=== PATIENT | female | born 1970 | race Caucasian/White ===

== ENCOUNTER → 2017-09-11 | Outpatient (CLI) | payer BC ==
[~2017-09-11] MED LIST: DCS100C PO; HYDR-34 PO; IBP600T1 PO
--- NOTE | 2017-09-11 17:15 | Diagnostic Imaging Report ---
INDICATION: Screening. At this time there are no current complaints. EXAMINATION: Bilateral digital screening mammogram with CAD. The current study was also evaluated with a Computer Aided Detection (CAD) system. COMPARISON: This study was compared to the prior exams of 02/29/2016 and 03/11/2012. FINDINGS: The fibroglandular tissue in both breasts is dense. This does limit the sensitivity of this exam. Overall, there does not appear to have been any significant change when compared to the prior study. No primary or secondary sign of malignancy is noted. IMPRESSION: There is no radiographic evidence for malignancy. ACR CATEGORY: 1 NEGATIVE. Dictated by: Dictated on workstation # [id number]
== END ==
LOC: RAD 15:39
PROVIDERS: ATTEND Family Medicine
DX: Z12.31 Encounter for screening mammogram for malignant neoplasm of breast (principal)
CPT/HCPCS: 77067

== ENCOUNTER → 2018-12-16 | Outpatient (CLI) | payer BC ==
--- NOTE | 2018-12-16 18:57 | Diagnostic Imaging Report ---
INDICATION: Chronic low back pain. TIME OF EXAM: 3:15 p.m. EXAMINATION: Three views of the lumbar spine were obtained. FINDINGS: Curvature and alignment is normal apart from minimal retrolisthesis of L5 on S1. Vertebral body heights are maintained. Disc spaces are fairly well preserved. There may be some degenerative facet changes noted at the L5-S1 and L4-L5 levels. No fracture or subluxation is seen. IMPRESSION: Lower lumbar spondylosis. No acute bony abnormality is detected. Dictated by: Dictated on workstation # [id number]
--- NOTE | 2018-12-17 20:42 | Diagnostic Imaging Report ---
INDICATION: Routine screening. Comparison is made with prior mammograms from 09/11/2017 at 02/29/2016. 2-D and 3-D bilateral screening mammography was performed with a Computer Aided Detection (CAD) system. FINDINGS: Both breasts are heterogeneously dense, limiting the sensitivity of mammography. Benign calcifications in the left breast are again noted. Overall parenchymal pattern is stable. No mass or malignant-appearing microcalcifications are seen. The axillae are unremarkable. IMPRESSION: No mammographic features suspicious for malignancy are identified. ACR BI-RADS Category 2: Benign findings. Result letter will be mailed to the patient. Note: At least 10% of breast cancer is not imaged by mammography. Dictated on workstation # [id number]
== END ==
LOC: RAD 14:40
PROVIDERS: ATTEND Family Medicine
DX: Z12.31 Encounter for screening mammogram for malignant neoplasm of breast (principal); M47.816 Spondylosis without myelopathy or radiculopathy, lumbar region
CPT/HCPCS: 72100; 77067

== ENCOUNTER → 2019-09-23 | Outpatient (CLI) | payer BC ==
--- NOTE | 2019-09-23 16:04 | Diagnostic Imaging Report ---
INDICATION: Right shoulder pain. EXAMINATION: Three views of the right shoulder were obtained. FINDINGS: No fracture, dislocation or other acute abnormality. IMPRESSION: Negative right shoulder. Dictated by: Dictated on workstation # [id number]
== END ==
LOC: RAD 15:24
PROVIDERS: ATTEND Nurse Practitioner Family
DX: M25.511 Pain in right shoulder (principal)
CPT/HCPCS: 73030

== ENCOUNTER → 2019-10-06 | Outpatient (CLI) | payer BC ==
--- NOTE | 2019-10-06 15:47 | Diagnostic Imaging Report ---
PROCEDURE: MRI lumbar spine. TECHNIQUE: Multiplanar, multisequence MRI of the lumbar spine was performed without contrast. INDICATION: Chronic low back pain. COMPARISON: No prior studies are available for comparison. FINDINGS: Curvature and alignment of the lumbar spine is normal. Vertebral body heights are maintained. No acute compression fracture or geographic marrow lesion is seen. There is some mild degenerative disc disease with variable disc space narrowing and desiccation. The conus is unremarkable at the L1-L2 level. T12-L1: Central canal is widely patent. Neural foramina are patent. L1-L2: Central canal is widely patent. Neural foramina appear patent. L2-L3: There is mild facet changes. Central canal is widely patent. Neural foramina are patent. L3-L4: Broad-based disc/osteophyte complex flattens the ventral thecal sac but central canal remains patent. There is some mild narrowing of the lateral recesses bilaterally. There is also mild bilateral neural foraminal narrowing. L4-L5: Hypertrophic facet changes are noted. Central canal is patent. Broad-based disc/osteophyte complex does narrow the lateral recesses bilaterally particularly on the left side. There is also significant left and moderate right neural foraminal stenosis. L5-S1: Facet arthropathy is noted. Central canal is patent. There is significant right and mild left neural foraminal stenosis. There is also significant right lateral recess stenosis. Paraspinous tissues are unremarkable. IMPRESSION: Multilevel lumbar spondylosis with multilevel lateral recess and neural foraminal narrowing described level by level above. No significant central canal stenosis is seen. Dictated by: Dictated on workstation # [id number]
== END ==
LOC: RAD 14:54
PROVIDERS: ATTEND Nurse Practitioner Family
DX: M47.896 Other spondylosis, lumbar region (principal); M48.07 Spinal stenosis, lumbosacral region
CPT/HCPCS: 72148

== ENCOUNTER → 2020-01-20 | Outpatient (CLI) | payer BC ==
--- NOTE | 2020-01-21 09:57 | Diagnostic Imaging Report ---
INDICATION: Routine screening. Comparison is made with prior mammogram from 12/16/2018 and 09/11/2017. 2-D and 3-D bilateral screening mammography was performed with CAD. Both breasts remain heterogeneously dense, limiting the sensitivity of mammography. Benign calcifications in the left breast are again noted. No mass or malignant-appearing microcalcifications are identified. Axillae are unremarkable. IMPRESSION: BI-RADS Category 2 No mammographic features suspicious for malignancy are identified. ACR BI-RADS Category 2: Benign findings. Result letter will be mailed to the patient. Note: At least 10% of breast cancer is not imaged by mammography. Dictated by: Dictated on workstation # [id number]
== END ==
LOC: RAD 13:10
PROVIDERS: ATTEND Family Medicine
DX: Z12.31 Encounter for screening mammogram for malignant neoplasm of breast (principal)
CPT/HCPCS: 77063; 77067

== ENCOUNTER → 2021-01-02 | Outpatient (CLI) | payer BC | END | disposition home or self-care (01) | LOC: PREOP 12-05 06:07 | PROVIDERS: ATTEND Surgery | DX: Z01.818 Encounter for other preprocedural examination (principal) ==

== ENCOUNTER 2021-03-06 06:54 | Outpatient (CLI) | payer BC ==
[~2021-03-06] VITALS: Ht 162.6 cm; Wt 66.9 kg
[2021-03-06] MEDS ORDERED: NF-VITD400 PO (11:38)
== END 2021-03-06 14:09 | disposition home or self-care (01) ==
LOC: PREOP 06:54
PROVIDERS: ATTEND Surgery
DX: Z01.818 Encounter for other preprocedural examination (principal)

== ENCOUNTER 2021-03-13 11:39 | Day surgery (SDC) | payer BC ==
[2021-03-13] VITALS (7 sets, daily range): BP systolic 105–120; BP diastolic 61–84
[~2021-03-13] VITALS: Ht 162.6 cm; Wt 66.9 kg
[~2021-03-13 11:39] MED LIST changes: +NF-VITD400 PO
[2021-03-13] MEDS ORDERED: LACTATED RINGERS 1,000 ML IV ONE (11:45)
[2021-03-13] MEDS ORDERED: LACTATED RINGERS 1,000 ML IV STA (11:48)
[2021-03-13] MEDS ORDERED: PROPOFOL INJECTION 50 ML IV ONE (13:36)
--- NOTE | 2021-03-13 14:16 | Discharge Inst-Simple/Standard ---
Discharge Inst-Standard Patient Instructions/Follow Up Plan of Care/Instructions/FU: 2 weeks [place] Activity as Tolerated: Yes Discharge Diet: Regular Diet MADDISON KEN DO Mar 13, 2021 14:16
--- NOTE | 2021-03-13 14:19 | Progress Note-Post Operative ---
Post-Operative Progess Note Surgeon (s)/[employer] (s) Surgeon MADDISON KEN DO [employer]: na Pre-Operative Diagnosis screening colonoscopy Post-Operative Diagnosis rectal polyp Procedure & Operative Findings Date of Procedure 03/13/21 Procedure Performed/Findings colonoscopy c hot bx polypectomy Anesthesia Type per tractor trailer technician Estimated Blood Loss Estimated blood loss (mL): none Specimens/Packing Specimens Removed rectal polyp MADDISON KEN DO Mar 13, 2021 14:19
--- NOTE | 2021-03-13 14:48 | Anesthesia-General Post-Op ---
MAC Patient Condition Mental Status/LOC: Same as Preop Cardiovascular: Satisfactory Nausea/Vomiting: Absent Respiratory: Satisfactory Pain: Controlled Complications: Absent Post Op Complications Complications None Follow Up Care/Instructions Patient Instructions None needed. Anesthesiology Discharge Order Discharge Order Patient is doing well, no complaints, stable vital signs, no apparent adverse anesthesia problems. No complications reported per nursing. CORINNE CHEN CRNA Mar 13, 2021 14:47
--- NOTE | 2021-03-13 19:24 | OPERATIVE REPORT ---
DATE OF SERVICE: 03/13/2021 PREOPERATIVE DIAGNOSIS: Screening colonoscopy. POSTOPERATIVE DIAGNOSIS: Rectal polyp. PROCEDURE: Colonoscopy with hot biopsy polypectomy. SURGEON: Maddison Goel DO ANESTHESIA: Per OUTSIDE MACHINIST HELPER. ESTIMATED BLOOD LOSS: None. COMPLICATIONS: None. INDICATIONS: The patient is a 50-year-old female needing screening colonoscopy. She understands risks and benefits of procedure and wished to proceed with procedure. Consent was signed in the chart. DESCRIPTION OF PROCEDURE: The patient was taken to the endoscopy suite, placed in left lateral recumbent position. Timeout was performed. Digital rectal exam was performed. No palpable polyps, masses or ulcerations. Appeared some slight hemorrhoids. Scope was inserted in the rectum, advanced all the way to cecum with minimal difficulty. Prep was adequate with irrigation and suction. Scope was then slowly retracted back. No polyps, masses or ulcerations within the cecum, ascending, transverse, descending colon and sigmoid colon. In the rectum, small polyp was present, hot biopsy polypectomy was performed. Scope was continuously slowly retracted back and retroflexed noting no other pathology. Scope was returned to its normal position, slowly withdrawn until completely removed. The patient tolerated procedure well without any complications, taken to recovery room in stable condition. RECOMMENDATIONS: The patient will need repeat colonoscopy in 5 years. Any issues before that be seen at that time for reevaluation. The patient will follow up in a couple of weeks to discuss pathology results and recommendations. Job ID: [id number] DocumentID: [id number] Dictated Date: 03/13/2021 14:22:08 Deck Steward Date: 03/13/2021 19:23:53 Dictated By: MADDISON GOEL DO
== END 2021-03-13 15:00 | disposition home or self-care (01) ==
LOC: ENDO 11:39
PROVIDERS: ATTEND Surgery
DX: Z12.11 Encounter for screening for malignant neoplasm of colon (principal); D12.8 Benign neoplasm of rectum; Z79.899 Other long term (current) drug therapy

== ENCOUNTER → 2021-07-18 | Outpatient (CLI) | payer BC ==
--- NOTE | 2021-07-19 09:33 | Diagnostic Imaging Report ---
Indication: Routine screening. Comparison is made with prior mammogram from 01/20/2020 and 12/16/2018. 2-D and 3-D bilateral screening mammography was performed with CAD. Both breasts are heterogeneously dense, limiting the sensitivity of mammography. The parenchymal pattern is stable. No mass or malignant-appearing microcalcifications are seen. There are benign calcifications present. Axillae are unremarkable. IMPRESSION: BI-RADS Category 2 No mammographic features suspicious for malignancy are identified. ACR BI-RADS Category 2: Benign findings. Result letter will be mailed to the patient. Note: At least 10% of breast cancer is not imaged by mammography. Dictated by: Dictated on workstation # [id number]
== END ==
LOC: RAD 15:30
PROVIDERS: ATTEND Family Medicine
DX: Z12.31 Encounter for screening mammogram for malignant neoplasm of breast (principal)
CPT/HCPCS: 77063; 77067

== ENCOUNTER → 2022-08-07 | Outpatient (CLI) | payer BC ==
--- NOTE | 2022-08-08 11:48 | Diagnostic Imaging Report ---
Indication: Routine screening. Comparison is made with prior mammograms 07/18/2021 and 01/20/2020. 2-D and 3-D bilateral screening mammography was performed with CAD. Both breasts are heterogeneously dense, limiting the sensitivity of mammography. No mass or malignant-appearing microcalcifications are seen. There are occasional benign calcifications. Axillae are unremarkable. IMPRESSION: BI-RADS Category 2 No mammographic features suspicious for malignancy are identified. ACR BI-RADS Category 2: Benign findings. Result letter will be mailed to the patient. Note: At least 10% of breast cancer is not imaged by mammography. Dictated by: Dictated on workstation # [id number]
== END ==
LOC: RAD 15:15
PROVIDERS: ATTEND Family Medicine
DX: Z12.31 Encounter for screening mammogram for malignant neoplasm of breast (principal)
CPT/HCPCS: 77063; 77067